=== PATIENT | female | born 1985 | race Caucasian/White ===

== ENCOUNTER 2020-10-04 23:10 | Inpatient (IN) ==
[2020-10-04 23:51] LABS: POC Blood Urea Nitrogen 6 mg/dL (6-20); POC CO2 19 mmol/L (22-30); POC Calcium, Ionized 1.03 mmEq/L (1.16-1.32); POC Chloride 96 mEq/L (96-108); POC Creatinine 0.5 mg/dL (0.6-1.2); POC Glucose, Random 158 mg/dL (70-105); POC Hematocrit 41 % (36-48); POC Potassium 2.9 mEql/L (3.3-5.1); POC Sodium 135 mEq/L (133-145)
[2020-10-05] MEDS ORDERED: POTASSIUM CHLORIDE 20 MEQ TABLET PO ONE (00:39)
[2020-10-05] MEDS ORDERED: ONDANSETRON 4 MG/2 ML VIAL IV ONE (00:39)
[2020-10-05] MEDS ORDERED: MAGNESIUM OXIDE 400 MG TABLET PO ONE (00:39)
[2020-10-05] MEDS ORDERED: LORazepam 2 MG/ML VIAL IV ONE ×2 (00:53→01:09)
--- NOTE | 2020-10-05 01:06 | Emergency Department Note ---
HPI General Chief complaint: Weakness Stated complaint: leg weakness Time Seen by Provider: 10/04/20 23:25 Source: patient Mode of arrival: wheelchair Limitations: no limitations History of Present Illness HPI Narrative: Patient is a 34-year-old lady who arrives to the emergency department by private vehicle accompanied by her complaining of generalized weakness. The patient says she has been having multiple episodes of seizure-like activity off and on for the past 3 weeks. She and her describe these episodes of her screaming out loud holding her arms up and shaking. She says that she has never had anything like this in the past but review of her medical records does reveal that she had described a history of pseudoseizures in her ER visit on September 13 and that a prior ER visit in revealed a previously diagnosed disorder of pseudoseizures. The patient is also been having nausea and vomiting for the past 2 days. She has been unable to keep anything down and has not been drinking alcohol for the past 2 days because of this. She normally does drink a large glass of vodka every day that she estimates contains about 4 or 5 shots. She has had symptoms of alcohol withdrawal in the past after cessation of alcohol intake. The patient says today after having some of these episodes she has been having difficulty walking because her legs feel too weak and she cannot feel her feet. Because of this, she decided to come in for further evaluation. Related Data Previous Rx's Medication Instructions Recorded lorazepam [Ativan] 1 mg PO TID PRN #14 tab 06/07/20 albuterol sulfate 2 puff INHALATION QID PRN #8.5 g 09/13/20 sulfamethoxazole-trimethoprim 1 tab PO Q12H #14 tab 09/13/20 [Bactrim DS] Allergies Allergy/AdvReac Type Severity Reaction Status Date / Time No Known Drug Allergies Allergy Unverified 09/09/20 15:03 Review of Systems ROS ROS Narrative: Narrative: All systems ED: reviewed and negative except as stated. Constitutional: Denies fever and chills Neurological: Denies headache PFSH Narrative Patient History Narrative: Narrative: Medical/Surgical/Family History All Active Problems (Updated 10/05/20 @ 02:42 by Hilario Linares DO) Acute alcoholic hepatitis (Acute) Acute dehydration (Acute) Palpitations (Chronic) SOB (shortness of breath) on exertion (Chronic) Dry mouth (Chronic) Difficulty hearing (Chronic) Ear ringing (Chronic) Head pain (Chronic) Vision changes (Chronic) Panic attack as reaction to stress (Chronic) Elevated liver enzymes (Chronic) Acquired thrombocytopenia (Chronic) Mixed anxiety and depressive disorder (Chronic) Cervical cancer (Chronic) Infrapatellar bursitis of right knee (Chronic) Acute alcohol intoxication (Chronic) Anxiety (Chronic) Pseudoseizure (Chronic) Alcohol use disorder, severe, dependence (Chronic) Generalized anxiety disorder (Chronic) Major depression, recurrent, chronic (Chronic) PTSD (post-traumatic stress disorder) (Chronic) Tobacco use disorder, continuous (Chronic) Seizure-like activity (Chronic) Bronchitis (Chronic) UTI (urinary tract infection) (Chronic) Medical History Acquired thrombocytopenia Acute alcohol intoxication Alcohol use disorder, severe, dependence Anxiety Bronchitis Cervical cancer Difficulty hearing Dry mouth Ear ringing Elevated liver enzymes Generalized anxiety disorder Head pain Right sideded Infrapatellar bursitis of right knee Major depression, recurrent, chronic Mixed anxiety and depressive disorder Palpitations Panic attack as reaction to stress doesnt leave home due to panic attack Pseudoseizure PTSD (post-traumatic stress disorder) Seizure-like activity SOB (shortness of breath) on exertion Tobacco use disorder, continuous UTI (urinary tract infection) Vision changes Surgical History H/O: hysterectomy History of tonsillectomy and adenoidectomy age 14 Family History Father , 45 Myocardial infarction Mother , 42 Lupus Lung cancer Social History Smoking Status: Current some day smoker Alcohol Intake Frequency: 2+ drinks per day (> 4 drinks a day ) Substance Use: does not use Exam Narrative Narrative: Gen -patient is awake and alert and appears anxious. HEENT -head is atraumatic. There is slight scleral icterus CV -S1-S2 regular rate and rhythm. Resp -breathing is nonlabored. Lungs are clear to auscultation bilaterally. There is no cyanosis. Derm -skin is warm and dry. MSK -present extremities are atraumatic. Psych -patient appears somewhat anxious. She has pressured speech. Neuro -patient answers questions appropriately and is oriented to person, place, time and situation. There is no dysarthria or aphasia. There is no facial muscular asymmetry. Extraocular motion is intact. Tongue protrudes in the midline. Palate elevates symmetrically. Shoulder shrug is symmetric. Muscle strength is 5 out of 5 in all 4 extremities. Peripheral sensation is grossly intact to light touch bilaterally. There is no [id number] abnormality. There is no [id number] abnormality. There is an intermittent intention tremor present General Limitations: no limitations Course Vital Signs Vital signs: Vital Signs Temperature 98.0 F 10/04/20 23:12 Pulse Rate 100 H 10/04/20 23:12 Respiratory Rate 20 10/04/20 23:12 Blood Pressure 131/91 10/04/20 23:12 Pulse Oximetry (%) 94 10/04/20 23:12 Temperature 98.0 F 10/04/20 23:12 Pulse Rate 104 H 10/05/20 01:01 Respiratory Rate 19 10/05/20 01:01 Blood Pressure 127/89 10/05/20 01:01 Pulse Oximetry (%) 96 10/05/20 01:01 MDM MDM Narrative Medical decision making narrative: EKG performed at 1133 p.m.: Sinus rhythm, rate 105. Normal P wave morphology. Normal QRS morphology. T waves are diffusely flattened. Normal AK QRS and QTc duration. No old EKG immediately available for comparison. EKG interpreted by me. Patient presents with generalized weakness in the setting of recent heavy alcohol intake. Labs are remarkable for elevated bilirubin and a worsening transaminitis. She also has worsening thrombocytopenia from her baseline and an elevated lipase. Patient has minimal epigastric discomfort and was actually able to tolerate some oral intake after antiemetics provided in the emergency department so clinically seems unlikely she has actual alcoholic pancreatitis. She does indeed have alcoholic hepatitis though and is significantly hypokalemic and appears quite dehydrated. She was unable to ambulate at all in the emergency department due to extreme weakness. Given this and her desire to achieve sobriety I recommended she be admitted for further hydration and repletion of electrolytes and treatment of alcohol withdrawal symptoms. She is agreeable with the plan. I discussed the patient's history examination and diagnostic findings with Dr. Burrell, who agrees with the plan of care and accepts admission. Critical care time I provided at least [31] minutes of critical care time. This was separate from any separately billable procedures. The patient was given potassium to replace her significant hypokalemia as well as empiric magnesium to treat her suspected whole-body magnesium depletion and facilitate potassium absorption to prevent cardiac dysrhythmias. She was given lorazepam to treat alcohol withdrawal symptoms and prevent progression to delirium tremens. She was given IV fluids to treat her significant dehydration. the patient was closely monitored for response to treatment and stability of vital signs throughout their emergency department stay. Lab Data Result diagrams: 10/05/20 23:47 Labs: Lab Results 10/04/20 10/05/20 10/05/20 Range/Units 23:40 01:19 23:47 WBC (4.5-11.0) K/mcL RBC (4.00-5.20) M/mcL Hgb (12.0-15.0) g/dL Hct (36.0-48.0) % POC Hct 41 (36-48) % MCV (80.0-100.0) fL MCH (26.0-34.0) pg MCHC (31.0-36.0) g/dL RDW (11.5-14.5) % Plt Count (140-440) K/mcL MPV (7.4-10.4) fL Neut % (Auto) (38.0-78.0) % Lymph % (Auto) (15.0-49.0) % [place] % (Auto) (1.0-12.0) % Eos % (Auto) (0.0-7.0) % Baso % (Auto) (0.0-2.0) % Lymph # (Auto) (1.50-4.80) K/mcL [place] # (Auto) (0.10-0.90) K/mcL Eos # (Auto) (0.00-0.70) K/mcL Baso # (Auto) (0.00-0.20) K/mcL Absolute Neutrophils (1.80-8.00) K/mcL POC PT 11.7 L (11.9-14.5) sec POC INR 1.0 (0.8-1.2) POC Sodium 135 (133-145) mEq/L POC Potassium 2.9 L* (3.3-5.1) mEql/L POC Chloride 96 (96-108) mEq/L POC Total CO2 19 L (22-30) mmol/L POC BUN 6 (6-20) mg/dL POC Creatinine 0.5 L (0.6-1.2) mg/dL POC Glucose 158 H (70-105) mg/dL POC WB Ioniz Calcium 1.03 L (1.16-1.32) mmEq/L Total Bilirubin 3.9 H (0.1-1.0) mg/dL Direct Bilirubin 2.1 H (<0.3) mg/dL AST 560 H (<32) U/L ALT 264 H (<40) U/L Alkaline Phosphatase 136 H (39-117) U/L Total Protein 6.3 (5.9-8.4) gm/dL Albumin 4.0 (3.2-5.2) gm/dL Globulin 2.3 (2.2-3.7) gm/dL Lipase (7-60) U/L Ethyl Alcohol (<0.010) gm/dL 10/05/20 10/05/20 10/05/20 Range/Units 23:47 23:47 23:47 WBC 6.6 (4.5-11.0) K/mcL RBC 4.06 (4.00-5.20) M/mcL Hgb 14.1 (12.0-15.0) g/dL Hct 39.8 (36.0-48.0) % POC Hct (36-48) % MCV 98.0 (80.0-100.0) fL MCH 34.7 H (26.0-34.0) pg MCHC 35.4 (31.0-36.0) g/dL RDW 12.9 (11.5-14.5) % Plt Count 43 L* (140-440) K/mcL MPV (7.4-10.4) fL Neut % (Auto) 71.6 (38.0-78.0) % Lymph % (Auto) 16.4 (15.0-49.0) % [place] % (Auto) 10.6 (1.0-12.0) % Eos % (Auto) 0.3 (0.0-7.0) % Baso % (Auto) 1.1 (0.0-2.0) % Lymph # (Auto) 1.08 L (1.50-4.80) K/mcL [place] # (Auto) 0.70 (0.10-0.90) K/mcL Eos # (Auto) 0.02 (0.00-0.70) K/mcL Baso # (Auto) 0.07 (0.00-0.20) K/mcL Absolute Neutrophils 4.73 (1.80-8.00) K/mcL POC PT (11.9-14.5) sec POC INR (0.8-1.2) POC Sodium (133-145) mEq/L POC Potassium (3.3-5.1) mEql/L POC Chloride (96-108) mEq/L POC Total CO2 (22-30) mmol/L POC BUN (6-20) mg/dL POC Creatinine (0.6-1.2) mg/dL POC Glucose (70-105) mg/dL POC WB Ioniz Calcium (1.16-1.32) mmEq/L Total Bilirubin (0.1-1.0) mg/dL Direct Bilirubin (<0.3) mg/dL AST (<32) U/L ALT (<40) U/L Alkaline Phosphatase (39-117) U/L Total Protein (5.9-8.4) gm/dL Albumin (3.2-5.2) gm/dL Globulin (2.2-3.7) gm/dL Lipase 828 H (7-60) U/L Ethyl Alcohol < 0.010 (<0.010) gm/dL Discharge Plan Patient/Caregiver Discharge Instructions Pt seen by 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
[2020-10-05 01:25] LABS: POC Pro Time 11.7 sec (11.9-14.5)
[2020-10-05 01:33] LABS: ALT/SGPT 264 U/L (<40); AST/SGOT 560 U/L (<32); Alkaline Phosphatase 136 U/L (39-117); Bilirubin,Direct 2.1 mg/dL (<0.3); Bilirubin,Total 3.9 mg/dL (0.1-1.0); Globulin 2.3 gm/dL (2.2-3.7)
[2020-10-05 01:34] LABS: Alcohol, Blood < 10.0 mg/dL; Alcohol,Blood < 0.010 gm/dL (<0.010)
[2020-10-05 02:18] LABS: Basophils # (Auto) 0.07 K/mcL (0.00-0.20); Basophils % (Auto) 1.1 % (0.0-2.0); Eosinophils # (Auto) 0.02 K/mcL (0.00-0.70); Eosinophils % (Auto) 0.3 % (0.0-7.0); Hematocrit 39.8 % (36.0-48.0); Hemoglobin 14.1 g/dL (12.0-15.0); Lymphocytes # (Auto) 1.08 K/mcL (1.50-4.80); Lymphocytes % (Auto) 16.4 % (15.0-49.0); Mean Corpuscular HGB Conc 35.4 g/dL (31.0-36.0); Monocytes % (Auto) 10.6 % (1.0-12.0); Neutrophils % (Auto) 71.6 % (38.0-78.0); Platelet Count 43 K/mcL (140-440); RBC 4.06 M/mcL (4.00-5.20); Red Cell Distribution Width 12.9 % (11.5-14.5); WBC 6.6 K/mcL (4.5-11.0)
[2020-10-05] MEDS ORDERED: LACTATED RINGERS 1,000 ML IV ONE ×2 (02:35)
[2020-10-05] MEDS ORDERED: 0.9 % SODIUM CHLORIDE 1,000 ML IV SCH (02:45)
[2020-10-05] MEDS ORDERED: LORazepam 2 MG/ML VIAL ONE ×3 (04:54→18:59)
[2020-10-05] MEDS: LORazepam 2 MG/ML VIAL IV PRN ×5 (04:58→19:02)
[2020-10-05] MEDS ORDERED: HYDROmorphone 1 MG/ML SYRINGE IV PRN ×3 (05:16→17:04)
[2020-10-05] MEDS ORDERED: BISACODYL 10 MG SUPP.RECT PR PRN ×2 (07:40→17:04)
[2020-10-05] MEDS ORDERED: MELATONIN 3 MG TABLET PO PRN ×2 (07:40→17:04)
[2020-10-05] MEDS ORDERED: ONDANSETRON 4 MG/2 ML VIAL IV PRN ×2 (07:40→17:04)
[2020-10-05] MEDS ORDERED: ALBUTEROL SULFATE 200 PUFF INHALER INH PRN ×2 (07:40→17:04)
[2020-10-05] MEDS ORDERED: NEUTRA PHOS 1 PACKET PO PRN ×2 (07:40→17:04)
[2020-10-05] MEDS ORDERED: MAGNESIUM SULFATE 2 GM/50 ML BAG IV PRN ×2 (07:40→17:04)
[2020-10-05] MEDS ORDERED: POTASSIUM CHLORIDE 40 MEQ in DEXTROSE 5% IN WATER 500 ML IV PRN ×2 (07:40→17:04)
[2020-10-05] MEDS ORDERED: POTASSIUM CHLORIDE 20 MEQ PACKET PO PRN ×2 (07:40→17:04)
[2020-10-05] MEDS ORDERED: ONDANSETRON 4 MG ODT TABLET SL PRN ×2 (07:40→17:04)
[2020-10-05] MEDS ORDERED: POLYETHYLENE GLYCOL 3350 17 GM PACKET PO PRN ×2 (07:40→17:04)
[2020-10-05] MEDS ORDERED: GABAPENTIN 100 MG CAPSULE PO ONE (07:46)
[2020-10-05] MEDS ORDERED: cloNIDine TTS 1 1 PATCH PATCH TD ONE (07:51)
--- NOTE | 2020-10-05 07:58 | Internal Med Progress Note ---
SUBJECTIVE Subjective Patient information: Note initiated : 10/05/20 at 7:56 am Service Date, if different from initiated Date: [] Patient: Fanny Ledesma 34 y/o F admitted on 10/05/20 for leg weakness. Chief Complaint: [] Constitutional Vitals: Vital Signs Temp Pulse Resp BP Pulse Ox 99.1 F H 118 H 15 117/86 97 10/05/20 06:57 10/05/20 06:57 10/05/20 06:57 10/05/20 06:57 10/05/20 07:05 Period Temp Pulse Resp BP Sys/Rod Pulse Ox Last 24 Hr 98.0 F-99.1 F 77-118 15-30 104-140/69-97 93-98 Intake and Output 10/04/20 10/05/20 10/05/20 21:59 05:59 13:59 Intake Total 1999 Output Total 1 Balance 1999 Weight 58.105 kg Intake & Output: Intake & Output 10/04/20 10/05/20 10/05/20 21:59 05:59 13:59 Intake Total 1999 Output Total 1 Balance 1999 Weight 58.105 kg Intake: IV 2000 Lactated Ringers 1,000 ml @ 2000 Wide Open IV BOLUS ONE Rx#: [id number] Output: Void Amount 1 Other: Urine Color Dark Ashley Urine Odor Normal # Voids 1 OBJ DATA Labs CBC & Chem 7: 10/05/20 23:47 Labs: Abnormal Lab Results 10/05/20 10/05/20 10/05/20 23:47 23:47 23:47 MCH 34.7 H Plt Count 43 L* Lymph # (Auto) 1.08 L POC PT POC Potassium POC Total CO2 POC Creatinine POC Glucose POC WB Ioniz Calcium Total Bilirubin 3.9 H Direct Bilirubin 2.1 H AST 560 H ALT 264 H Alkaline Phosphatase 136 H Lipase 828 H 10/05/20 10/04/20 01:19 23:40 MCH Plt Count Lymph # (Auto) POC PT 11.7 L POC Potassium 2.9 L* POC Total CO2 19 L POC Creatinine 0.5 L POC Glucose 158 H POC WB Ioniz Calcium 1.03 L Total Bilirubin Direct Bilirubin AST ALT Alkaline Phosphatase Lipase Meds: Medications Albuterol Sulfate (Albuterol Sulfate 200 Puff Inhaler) 2 puff INH QIDP PRN PRN Reason: shortness of breath or wheezin Bisacodyl (Bisacodyl 10 Mg Supp.Rect) 10 mg [place] Q2-3DAYS PRN PRN Reason: Constipation Budesonide (Budesonide 0.5 Mg/2 Ml Ampul.Neb) 0.5 mg NEB Q12 [facility] Clonidine HCl (Clonidine Hcl 0.1 Mg Tablet) 0.1 mg PO Q8 [facility] Cyanocobalamin (Cyanocobalamin (Vitamin B-12) 500 Mcg Tablet) 1,000 mcg PO BID [facility] Stop: 10/09/20 21:01 Docusate Sodium (Docusate Sodium 100 Mg Capsule) 100 mg PO BID [facility] Folic Acid (Folic Acid 1 Mg Tablet) 1 mg PO DAILY [facility] Gabapentin (Gabapentin 300 Mg Capsule) 600 mg PO Q8 [facility] Heparin Sodium (Porcine) (Heparin 5,000 Unit/Ml Vial) 5,000 unit SQ Q12 [facility] Hydromorphone HCl (Hydromorphone 1 Mg/Ml Syringe) 0.25 mg IV Q2HP PRN; Protocol PRN Reason: Per Pain Protocol Potassium Chloride 40 meq/ (Dextrose) 520 mls @ 130 mls/hr IV UD PRN PRN Reason: K+ = or < 3.5 Magnesium Sulfate (Magnesium Sulfate) 2 gm in 50 mls @ 50 mls/hr IV UD PRN PRN Reason: MG = or < 1.7 Sodium Chloride (Sodium Chloride 0.9%) 1,000 mls @ 250 mls/hr IV .Q4H GENE Thiamine HCl 100 mg/ Sodium (Chloride) 51 mls @ 50 mls/hr IV DAILY [facility] Stop: 10/07/20 10:02 Iron Carb/Multivit/[place]/Folic Acid (Multivit,Ther Iron,Ca,Fa & Min 1 Tablet) 1 tab PO DAILY [facility] Lorazepam (Lorazepam 2 Mg/Ml Vial) 0 mg IV Q4-6HP PRN; Protocol PRN Reason: CIWA-A >6 or HR >100 Melatonin (Melatonin 3 Mg Tablet) 3 mg PO HSP PRN PRN Reason: Insomnia Ondansetron HCl (Ondansetron 4 Mg Odt Tablet) 4 mg SL Q4-6HP PRN; Protocol PRN Reason: Nausea And Vomiting Ondansetron HCl (Ondansetron 4 Mg/2 Ml Vial) 4 mg IV Q4-6HP PRN; Protocol PRN Reason: Nausea And Vomiting Pantoprazole Sodium (Pantoprazole 40 Mg Tablet) 40 mg PO QAMAC GENE Polyethylene Glycol (Polyethylene Glycol 3350 17 Gm Packet) 17 gm PO DAILYP PRN PRN Reason: Constipation Potassium Chloride (Potassium Chloride 20 Meq Packet) 40 meq PO DAILYP PRN PRN Reason: K+ < 3.5 Potassium/Phosphorus/Sodium (Neutra Phos 1 Packet) 2 packet PO DAILYP PRN PRN Reason: PHOS <2.5 Prednisone (Prednisolone 15 Mg/5 Ml Oral Felicitas) 40 mg PO DAILY GENE Senna/Docusate Sodium (Sennosides/Docusate Sodium 1 Tab Tablet) 1 tab PO HS GENE Sodium Chloride (0.9 % Sodium Chloride 10 Ml Syringe) 10 ml IV Q8 GENE A/P Narrative A/P Narrative: * Alcoholic hepatitis * Acute ETOH withdrawl * Hypokalemia * Acute pancreatitis * Thrombocytopenia * PEM * Time Spent With Patient Time: Total time spent is greater than 50% in coordination of care (as documented) at patient's floor/unit and/or counseling patient: QUALITY Stroke Symptom Onset Unknown: No VTE Deep Vein Thrombosis/Pulmonary Embolism Present on Admission: No
[2020-10-05] MEDS ORDERED: prednisoLONE 15 MG/5 ML ORAL SOL PO SCH (09:00)
[2020-10-05] MEDS ORDERED: CYANOCOBALAMIN (VITAMIN B-12) 500 MCG TABLET PO SCH (09:00)
[2020-10-05] MEDS ORDERED: DOCUSATE SODIUM 100 MG CAPSULE PO SCH (09:00)
[2020-10-05] MEDS ORDERED: MULTIVIT,THER IRON,CA,FA & MIN 1 TABLET PO SCH (09:00)
[2020-10-05] MEDS ORDERED: THIAMINE 100 MG in 0.9 % SODIUM CHLORIDE 50 ML IV SCH (09:00)
[2020-10-05] MEDS ORDERED: HEPARIN 5,000 UNIT/ML VIAL SQ SCH (09:00)
[2020-10-05] MEDS ORDERED: BUDESONIDE 0.5 MG/2 ML AMPUL.NEB NEB SCH (09:00)
[2020-10-05] MEDS ORDERED: FOLIC ACID 1 MG TABLET PO SCH (09:00)
[2020-10-05 09:13] LABS: Prothrombin Time 14.1 sec (11.9-14.5)
[2020-10-05] MEDS: 0.9 % SODIUM CHLORIDE 1,000 ML IV SCH ×5 (09:30→21:39)
--- NOTE | 2020-10-05 09:59 | Internal Med History&Physical ---
HPI History of Present Illness Patient information: Note initiated : 10/05/20 at 9:50 am Service Date, if different from initiated Date: [] Patient: Fanny Ledesma 34 y/o F admitted on 10/05/20 for leg weakness. Chief Complaint: [] History of present illness: Ms. Ledesma is a 34 year old F history of alcoholism/reactive airway diseas Who presents to the ER with increasing weakness. Patient has been drinking regularly in excess of 8 to 10 ounces of vodka. She endorses to starting drinking at age 14. She has 3 kids and lives with her . She denies suicidal ideation but has been trying to quit alcohol. She is on multiple recent hospitalization for alcohol intoxication. She denies bloody emesis, bloody stool, abdominal pain distention or yellow discoloration of skin, she does endorse to loss of appetite. Initial work-up in the ER was consistent with acute alcoholic hepatitis with elevated LFTs AST/ALT ratio reduced to 1, platelet 43, elevated lipase, early alcohol withdrawal symptoms with tachycardia tachypnea and psychomotor agitation. Patient was started on benzodiazepine/crystalloids. Notably patient has history of withdrawal symptoms mimicking seizures in the past. Hospitalist service was consulted At the time of evaluation patient is anxious. She is able to answer most of the questions. She is slightly anxious and fidgety but denies diaphoresis/diarrhea/fever, chills. Review of systems 10 point review system was performed and is negative except for ones discussed above PFSH PFSH All Active Problems (Updated 10/05/20 @ 02:42 by Hilario Linares DO) Acute alcoholic hepatitis (Acute) Acute dehydration (Acute) Palpitations (Chronic) SOB (shortness of breath) on exertion (Chronic) Dry mouth (Chronic) Difficulty hearing (Chronic) Ear ringing (Chronic) Head pain (Chronic) Vision changes (Chronic) Panic attack as reaction to stress (Chronic) Elevated liver enzymes (Chronic) Acquired thrombocytopenia (Chronic) Mixed anxiety and depressive disorder (Chronic) Cervical cancer (Chronic) Infrapatellar bursitis of right knee (Chronic) Acute alcohol intoxication (Chronic) Anxiety (Chronic) Pseudoseizure (Chronic) Alcohol use disorder, severe, dependence (Chronic) Generalized anxiety disorder (Chronic) Major depression, recurrent, chronic (Chronic) PTSD (post-traumatic stress disorder) (Chronic) Tobacco use disorder, continuous (Chronic) Seizure-like activity (Chronic) Bronchitis (Chronic) UTI (urinary tract infection) (Chronic) Medical History Acquired thrombocytopenia Acute alcohol intoxication Alcohol use disorder, severe, dependence Anxiety Bronchitis Cervical cancer Difficulty hearing Dry mouth Ear ringing Elevated liver enzymes Generalized anxiety disorder Head pain Right sideded Infrapatellar bursitis of right knee Major depression, recurrent, chronic Mixed anxiety and depressive disorder Palpitations Panic attack as reaction to stress doesnt leave home due to panic attack Pseudoseizure PTSD (post-traumatic stress disorder) Seizure-like activity SOB (shortness of breath) on exertion Tobacco use disorder, continuous UTI (urinary tract infection) Vision changes Surgical History H/O: hysterectomy History of tonsillectomy and adenoidectomy age 14 Family History Father , 45 Myocardial infarction Mother , 42 Lupus Lung cancer Social History (Updated 09/09/20 @ 15:17 by Edie Olson LPN) alcohol intake frequency: 2+ drinks per day (> 4 drinks a day ) substance use type: does not use MEDS/ALLERGIES Home Medications and Allergies Home Medications Medication Instructions Recorded Confirmed Type lorazepam [Ativan] 1 mg PO TID PRN #14 tab 06/07/20 10/05/20 Rx albuterol sulfate 2 puff INHALATION QID PRN #8.5 g 09/13/20 10/05/20 Rx sulfamethoxazole-trimethoprim 1 tab PO Q12H #14 tab 09/13/20 10/05/20 Rx [Bactrim DS] Allergies Allergy/AdvReac Type Severity Reaction Status Date / Time No Known Drug Allergies Allergy Verified 10/05/20 03:53 EXAM Constitutional Vitals: Temp Pulse Resp BP Pulse Ox 99.1 F H 118 H 15 117/86 97 10/05/20 06:57 10/05/20 06:57 10/05/20 06:57 10/05/20 06:57 10/05/20 07:05 Alert, anxious and fidgety Head normocephalic Oral cavity moist No ear nose discharge Eye movement symmetrical, no nystagmus Neck supple no lymphadenopathy S1-S2 tachycardia Nonlabored rapid shallow breathing Nondistended nontender abdomen Lower extremity no cyanosis clubbing or joint swelling Skin no suspicious lesion Psych no hallucination Neuro normal higher function, GCS 14 DATA Data Completed and Pending Labs: Labs from last 24 hours 10/05/20 10/05/20 10/05/20 23:47 23:47 23:47 WBC 6.6 RBC 4.06 Hgb 14.1 Hct 39.8 POC Hct MCV 98.0 MCH 34.7 H MCHC 35.4 RDW 12.9 Plt Count 43 L* MPV Neut % (Auto) 71.6 Lymph % (Auto) 16.4 [place] % (Auto) 10.6 Eos % (Auto) 0.3 Baso % (Auto) 1.1 Lymph # (Auto) 1.08 L [place] # (Auto) 0.70 Eos # (Auto) 0.02 Baso # (Auto) 0.07 Absolute Neutrophils 4.73 POC PT PT POC INR INR POC Sodium POC Potassium POC Chloride POC Total CO2 POC BUN POC Creatinine POC Glucose POC WB Ioniz Calcium Total Bilirubin Direct Bilirubin AST ALT Alkaline Phosphatase Total Protein Albumin Globulin Lipase 828 H Ethyl Alcohol < 0.010 10/05/20 10/05/20 10/05/20 23:47 08:08 01:19 WBC RBC Hgb Hct POC Hct MCV MCH MCHC RDW Plt Count MPV Neut % (Auto) Lymph % (Auto) [place] % (Auto) Eos % (Auto) Baso % (Auto) Lymph # (Auto) [place] # (Auto) Eos # (Auto) Baso # (Auto) Absolute Neutrophils POC PT 11.7 L PT 14.1 POC INR 1.0 INR 1.0 POC Sodium POC Potassium POC Chloride POC Total CO2 POC BUN POC Creatinine POC Glucose POC WB Ioniz Calcium Total Bilirubin 3.9 H Direct Bilirubin 2.1 H AST 560 H ALT 264 H Alkaline Phosphatase 136 H Total Protein 6.3 Albumin 4.0 Globulin 2.3 Lipase Ethyl Alcohol 10/04/20 23:40 WBC RBC Hgb Hct POC Hct 41 MCV MCH MCHC RDW Plt Count MPV Neut % (Auto) Lymph % (Auto) [place] % (Auto) Eos % (Auto) Baso % (Auto) Lymph # (Auto) [place] # (Auto) Eos # (Auto) Baso # (Auto) Absolute Neutrophils POC PT PT POC INR INR POC Sodium 135 POC Potassium 2.9 L* POC Chloride 96 POC Total CO2 19 L POC BUN 6 POC Creatinine 0.5 L POC Glucose 158 H POC WB Ioniz Calcium 1.03 L Total Bilirubin Direct Bilirubin AST ALT Alkaline Phosphatase Total Protein Albumin Globulin Lipase Ethyl Alcohol A/P Narrative A/P Narrative: * Acute alcohol hepatitis. Discriminant function under 30. Continue supportive treatment. CT abdomen rule out obstructive biliary process * Acute alcoholic pancreatitis-high Kleberg score. Continue aggressive crystalloid/pain management. Continue bowel rest, start clears * Alcohol withdrawal-aggressive management per protocol including clonidine/gabapentin and as needed benzodiazepine. Multivitamins * Thrombocytopenia secondary to alcoholic liver disease * Hypokalemia on replacement * Reactive airway disease continue bronchodilators * Full code prophylaxis Heparin Plan * Inpatient admission * Close hemodynamic telemetry monitoring for alcohol withdrawal and impending seizure watch * Antiseizure medication/crystalloid/supportive management * Oral clears * Prednisolone for alcohol hepatitis Time Spent With Patient Time: Total time spent is greater than 50% in coordination of care (as documented) at patient's floor/unit and/or counseling patient: QUALITY Stroke Symptom Onset Unknown: No VTE Deep Vein Thrombosis/Pulmonary Embolism Present on Admission: No
[2020-10-05] MEDS ORDERED: IOPAMIDOL 100 ML BOTTLE IV ONE ×2 (12:15→17:04)
--- NOTE | 2020-10-05 12:38 | Cat Scan Report ---
CLINICAL INFORMATION: Abdominal pain - hepatic inflammation6 COMPARISON: None. TECHNIQUE: Following enteric contrast, 80 cc of Isovue-370 were injected intravenously, and 60 seconds later, 0.625 mm helical slices were obtained from the mid heart through the subtrochanteric regions. Following reconstruction, 2.5 mm sagittal, coronal and axial reformatted images were processed and reviewed at bone, lung and soft tissue windows. Five minutes later, 0.625 mm helical slices were obtained from the mid heart through the kidneys and viewed at soft tissue windows.The exam was performed using radiation dose optimization techniques including, but not limited to, automated exposure control, adjustment of the mA and/or kV according to patient size and use of iterative reconstruction technique. FINDINGS: The lung bases show no abnormality - no effusion. The visualized heart is normal. Abdominal images show markedly enlarged liver with a vertical dimension of 23 cm at mid clavicular line. There is also marked diffuse fatty change, but no focal hepatic lesion. Gallbladder is mildly distended but grossly normal. Intrahepatic and common bile ducts are normal caliber: CBD is 5 mm. Both kidneys, adrenal glands, spleen, pancreas and aorta, including aortic branches, are normal in size variation attenuation without focal lesion. There is no free air, free fluid or adenopathy. Pelvic images show anteflexed uterus which is normal in size: 7 x 4 cm. both ovaries are normal. Urinary bladder is unremarkable. Few sigmoid diverticuli appreciated no evidence of diverticulitis. There is mild mucosal enhancement of the right colon and cecum which could indicate colitis. The small bowel stomach are grossly normal. Bone windows show no osseous abnormality IMPRESSION: 1. Moderate hepatomegaly megaly with severe diffuse fatty change compatible with the clinical diagnosis of alcoholic hepatitis. No focal lesions. No evidence of cirrhosis 2. Mild mucosal enhancement of the right colon suggestive of colitis. Interpreted and Authenticated by: Familia Barroso 10/05/20
[2020-10-05] MEDS ORDERED: 0.9 % SODIUM CHLORIDE 10 ML SYRINGE IV SCH (14:00)
[2020-10-05] MEDS ORDERED: GABAPENTIN 300 MG CAPSULE PO SCH (14:00)
[2020-10-05] MEDS ORDERED: cloNIDine HCL 0.1 MG TABLET PO SCH (14:00)
[2020-10-05] MEDS ORDERED: LORazepam 2 MG/ML VIAL IV PRN (17:04)
[2020-10-05] MEDS: BUDESONIDE 0.5 MG/2 ML AMPUL.NEB NEB SCH (19:59)
[2020-10-05] MEDS ORDERED: SENNOSIDES/DOCUSATE SODIUM 1 TAB TABLET PO SCH ×2 (21:00)
[2020-10-05] MEDS: GABAPENTIN 300 MG CAPSULE PO SCH (21:34)
[2020-10-05] MEDS: HEPARIN 5,000 UNIT/ML VIAL SQ SCH (21:34)
[2020-10-05] MEDS: cloNIDine HCL 0.1 MG TABLET PO SCH (21:34)
[2020-10-05] MEDS: CYANOCOBALAMIN (VITAMIN B-12) 500 MCG TABLET PO SCH (21:34)
[2020-10-05] MEDS: 0.9 % SODIUM CHLORIDE 10 ML SYRINGE IV SCH (21:35)
[2020-10-05] MEDS: DOCUSATE SODIUM 100 MG CAPSULE PO SCH (21:35)
[2020-10-06] MEDS: 0.9 % SODIUM CHLORIDE 1,000 ML IV SCH ×7 (02:39→21:53)
[2020-10-06] MEDS: LORazepam 2 MG/ML VIAL IV PRN ×5 (04:10→20:36)
[2020-10-06] MEDS: cloNIDine HCL 0.1 MG TABLET PO SCH ×3 (06:32→20:35)
[2020-10-06] MEDS: GABAPENTIN 300 MG CAPSULE PO SCH ×3 (06:33→20:36)
[2020-10-06] MEDS: 0.9 % SODIUM CHLORIDE 10 ML SYRINGE IV SCH ×3 (06:40→21:48)
[2020-10-06] MEDS ORDERED: PANTOPRAZOLE 40 MG TABLET PO SCH ×2 (07:30)
[2020-10-06] MEDS: DOCUSATE SODIUM 100 MG CAPSULE PO SCH ×2 (08:13→20:35)
[2020-10-06 08:14] LABS: ALT/SGPT 148 U/L (<40); AST/SGOT 250 U/L (<32); Albumin 2.6 gm/dL (3.2-5.2); Albumin/Globulin Ratio 1.9 (1.0-2.3); Alkaline Phosphatase 80 U/L (39-117); Basophils # (Auto) 0.03 K/mcL (0.00-0.20); Basophils % (Auto) 0.6 % (0.0-2.0); Bilirubin,Total 2.7 mg/dL (0.1-1.0); Blood Urea Nitrogen 4 mg/dL (6-20); Calcium 7.1 mg/dL (8.6-10.4); Carbon Dioxide 22 mmol/L (22-30); Chloride 104 mmol/L (96-108); Eosinophils # (Auto) 0.11 K/mcL (0.00-0.70); Eosinophils % (Auto) 2.3 % (0.0-7.0); Globulin 1.4 gm/dL (2.2-3.7); Glomerular Filtration Rate 147; Glucose 89 mg/dL (70-105); Hematocrit 28.3 % (36.0-48.0); Hemoglobin 9.5 g/dL (12.0-15.0); Lactate Dehydrogenase 293 U/L (135-225); Lymphocytes # (Auto) 1.05 K/mcL (1.50-4.80); Lymphocytes % (Auto) 22.3 % (15.0-49.0); Mean Cell Volume 103.3 fL (80.0-100.0); Mean Corpuscular HGB Conc 33.6 g/dL (31.0-36.0); Mean Platelet Volume 13.8 fL (7.4-10.4); Monocytes % (Auto) 8.5 % (1.0-12.0); Neutrophils % (Auto) 66.3 % (38.0-78.0); Phosphorous 1.9 mg/dL (2.5-4.5); Platelet Count 46 K/mcL (140-440); RBC 2.74 M/mcL (4.00-5.20); Red Cell Distribution Width 13.4 % (11.5-14.5); Triglycerides 75 mg/dL (<150); Uric Acid 4.9 mg/dL (2.5-8.0); WBC 4.7 K/mcL (4.5-11.0)
[2020-10-06] MEDS: CYANOCOBALAMIN (VITAMIN B-12) 500 MCG TABLET PO SCH ×2 (08:18→20:35)
[2020-10-06] MEDS: HEPARIN 5,000 UNIT/ML VIAL SQ SCH (08:24)
[2020-10-06] MEDS ORDERED: POTASSIUM CHLORIDE 40 MEQ in DEXTROSE 5% IN WATER 500 ML IV PRN ×2 (08:39→17:32)
[2020-10-06] MEDS ORDERED: NEUTRA PHOS 1 PACKET PO PRN (08:50)
[2020-10-06] MEDS ORDERED: MAGNESIUM SULFATE 2 GM/50 ML BAG IV PRN (08:50)
[2020-10-06] MEDS ORDERED: prednisoLONE 15 MG/5 ML ORAL SOL PO SCH (09:00)
[2020-10-06] MEDS ORDERED: THIAMINE 100 MG in 0.9 % SODIUM CHLORIDE 50 ML IV SCH (09:00)
[2020-10-06] MEDS ORDERED: MULTIVIT,THER IRON,CA,FA & MIN 1 TABLET PO SCH (09:00)
[2020-10-06] MEDS ORDERED: FOLIC ACID 1 MG TABLET PO SCH (09:00)
[2020-10-06] MEDS: BUDESONIDE 0.5 MG/2 ML AMPUL.NEB NEB SCH ×2 (09:27→20:14)
--- NOTE | 2020-10-06 13:03 | Internal Med Progress Note ---
SUBJECTIVE Subjective Patient information: Note initiated : 10/06/20 at 12:57 pm Service Date, if different from initiated Date: [] Patient: Fanny Ledesma a 34 y/o F admitted on 10/05/20 for leg weakness. Chief Complaint: [] Interval history: Ms. Ledesma is a 34 year old F history of alcoholism/reactive airway diseas Who presents to the ER with increasing weakness. Patient has been drinking regularly in excess of 8 to 10 ounces of vodka. She endorses to starting drinking at age 14. She has 3 kids and lives with her . She denies suicidal ideation but has been trying to quit alcohol. She is on multiple recent hospitalization for alcohol intoxication. She denies bloody emesis, bloody stool, abdominal pain distention or yellow discoloration of skin, she does endorse to loss of appetite. Initial work-up in the ER was consistent with acute alcoholic hepatitis with elevated LFTs AST/ALT ratio reduced to 1, platelet 43, elevated lipase, early alcohol withdrawal symptoms with tachycardia tachypnea and psychomotor agitation. Patient was started on benzodiazepine/crystalloids. Notably patient has history of withdrawal symptoms mimicking seizures in the past. Hospitalist service was consulted At the time of evaluation patient is anxious. She is able to answer most of the questions. She is slightly anxious and fidgety but denies diaphoresis/diarrhea/fever, chills. Later in the day patient clinically deteriorating. Case discussed with patient's nursing staff. Remains tachycardic at 120s with CIWA score around 20. Tremulous and diaphoretic. Transition to PCU for continued EtOH withdrawal care/monitoring for DTs and seizure prophylaxis. 10/06-patient doing well on aggressive alcohol withdrawal protocol. LFTs downtrending. Transitioning to oral diet. Improved psychomotor agitation/tachycardia/diaphoresis. Electrolyte abnormalities currently being replaced with IV and oral magnesium/potassium/phosphorus. Aggressive counseling for alcohol cessation performed. Patient volunteering to undergo outpatient rehab however affirms that is difficult at home with her also being an alcoholic. Case management consulted to provide resources available in the community. No overnight events except for persistent psychomotor agitation requiring aggressive alcohol withdrawal monitoring and treatment Constitutional Vitals: Vital Signs Temp Pulse Resp BP Pulse Ox 98.7 F 76 16 110/73 95 10/06/20 12:00 10/06/20 12:00 10/06/20 12:00 10/06/20 12:00 10/06/20 12:00 Period Temp Pulse Resp BP Sys/Rod Pulse Ox Last 24 Hr 97.9 F-98.7 F 67-125 15-20 94-126/69-80 94-98 Intake and Output 10/05/20 10/06/20 10/06/20 21:59 05:59 13:59 Intake Total 2671 1800 1901 Output Total 126 1050 2050 Balance 2545 750 -149 Weight 61.734 kg Anxious and fidgety Alert and respond to commands Nonlabored breathing Tremulous Intake & Output: Intake & Output 10/05/20 10/06/20 10/06/20 21:59 05:59 13:59 Intake Total 2671 1800 1901 Output Total 126 1050 2050 Balance 2545 750 -149 Weight 61.734 kg Intake: IV 2471 1000 1101 Sodium Chloride 0.9% 1,000 ml @ 2471 1000 1000 250 mls/hr IV .Q4H [facility] Rx#: [id number] Vitamin B1 100 mg In Sodium 51 Chloride 0.9% 50 ml @ 50 mls/hr IV DAILY [facility] Rx#:[id number] Oral 200 800 800 Output: Void Amount 125 1050 2050 Urine/Stool Mix 1 Other: Meal jello, chicken broth Percent of Meal Consumed 100% Urine Appearance Clear Clear Urine Color Dark Ashley Light Ashley Dark Yellow [place] Urine Odor Strong Normal Stool Size Large OBJ DATA Labs CBC & Chem 7: 10/06/20 05:53 10/06/20 05:53 Labs: Abnormal Lab Results 10/06/20 10/06/20 10/05/20 05:53 05:53 23:47 RBC 2.74 L Hgb 9.5 L Hct 28.3 L MCV 103.3 H MCH 34.7 H Plt Count 46 L* MPV 13.8 H Lymph # (Auto) 1.05 L POC PT POC Potassium Potassium 3.0 L POC Total CO2 Anion Gap 7.0 L BUN 4 L Creatinine 0.3 L POC Creatinine POC Glucose Calcium 7.1 L POC WB Ioniz Calcium Phosphorus 1.9 L Magnesium 0.9 L* Total Bilirubin 2.7 H Direct Bilirubin 2.0 H GGT 945 H AST 250 H ALT 148 H Alkaline Phosphatase Lactate Dehydrogenase 293 H Total Protein 4.0 L Albumin 2.6 L Globulin 1.4 L Lipase 828 H 10/05/20 10/05/20 10/05/20 23:47 23:47 01:19 RBC Hgb Hct MCV MCH 34.7 H Plt Count 43 L* MPV Lymph # (Auto) 1.08 L POC PT 11.7 L POC Potassium Potassium POC Total CO2 Anion Gap BUN Creatinine POC Creatinine POC Glucose Calcium POC WB Ioniz Calcium Phosphorus Magnesium Total Bilirubin 3.9 H Direct Bilirubin 2.1 H GGT AST 560 H ALT 264 H Alkaline Phosphatase 136 H Lactate Dehydrogenase Total Protein Albumin Globulin Lipase 10/04/20 23:40 RBC Hgb Hct MCV MCH Plt Count MPV Lymph # (Auto) POC PT POC Potassium 2.9 L* Potassium POC Total CO2 19 L Anion Gap BUN Creatinine POC Creatinine 0.5 L POC Glucose 158 H Calcium POC WB Ioniz Calcium 1.03 L Phosphorus Magnesium Total Bilirubin Direct Bilirubin GGT AST ALT Alkaline Phosphatase Lactate Dehydrogenase Total Protein Albumin Globulin Lipase Meds: Medications Albuterol Sulfate (Albuterol Sulfate 200 Puff Inhaler) 2 puff INH QIDP PRN PRN Reason: shortness of breath or wheezin Bisacodyl (Bisacodyl 10 Mg Supp.Rect) [address] Q2-3DAYS PRN PRN Reason: Constipation Budesonide (Budesonide 0.5 Mg/2 Ml Ampul.Neb) 0.5 mg NEB Q12 [facility] Last Admin: 10/06/20 09:27 Dose: 0.5 mg Documented by: Clonidine HCl (Clonidine Hcl 0.1 Mg Tablet) 0.1 mg PO Q8 [facility] Last Admin: 10/06/20 06:32 Dose: 0.1 mg Documented by: Cyanocobalamin (Cyanocobalamin (Vitamin B-12) 500 Mcg Tablet) 1,000 mcg PO BID [facility] Stop: 10/09/20 21:01 Last Admin: 10/06/20 08:18 Dose: 1,000 mcg Documented by: Docusate Sodium (Docusate Sodium 100 Mg Capsule) 100 mg PO BID [facility] Last Admin: 10/06/20 08:13 Dose: Not Given Documented by: Folic Acid (Folic Acid 1 Mg Tablet) 1 mg PO DAILY [facility] Last Admin: 10/06/20 08:18 Dose: 1 mg Documented by: Gabapentin (Gabapentin 300 Mg Capsule) 600 mg PO Q8 [facility] Last Admin: 10/06/20 06:33 Dose: 600 mg Documented by: Heparin Sodium (Porcine) (Heparin 5,000 Unit/Ml Vial) 5,000 unit SQ Q12 [facility] Last Admin: 10/06/20 08:24 Dose: 5,000 unit Documented by: Hydromorphone HCl (Hydromorphone 1 Mg/Ml Syringe) 0.25 mg IV Q2HP PRN; Protocol PRN Reason: Per Pain Protocol Sodium Chloride (Sodium Chloride 0.9%) 1,000 mls @ 250 mls/hr IV .Q4H [facility] Last Admin: 10/06/20 07:05 Dose: 250 mls/hr Documented by: Magnesium Sulfate (Magnesium Sulfate) 2 gm in 50 mls @ 50 mls/hr IV UD PRN PRN Reason: MG = or < 1.7 Last Infusion: 10/06/20 12:15 Dose: Infused Documented by: Thiamine HCl 100 mg/ Sodium (Chloride) 51 mls @ 50 mls/hr IV DAILY [facility] Stop: 10/07/20 10:02 Last Infusion: 10/06/20 11:10 Dose: Infused Documented by: Potassium Chloride 40 meq/ (Dextrose) 520 mls @ 130 mls/hr IV UD PRN PRN Reason: K+ = or < 3.5 Iron Carb/Multivit/[place]/Folic Acid (Multivit,Ther Iron,Ca,Fa & Min 1 Tablet) 1 tab PO DAILY [facility] Last Admin: 10/06/20 08:19 Dose: 1 tab Documented by: Lorazepam (Lorazepam 2 Mg/Ml Vial) 1 - 2 mg IV Q2HP PRN PRN Reason: ANXIETY/SEDATION Last Admin: 10/06/20 10:04 Dose: 2 mg Documented by: Melatonin (Melatonin 3 Mg Tablet) 3 mg PO HSP PRN PRN Reason: Insomnia Ondansetron HCl (Ondansetron 4 Mg Odt Tablet) 4 mg SL Q4-6HP PRN; Protocol PRN Reason: Nausea And Vomiting Ondansetron HCl (Ondansetron 4 Mg/2 Ml Vial) 4 mg IV Q4-6HP PRN; Protocol PRN Reason: Nausea And Vomiting Pantoprazole Sodium (Pantoprazole 40 Mg Tablet) 40 mg PO QAMAC [facility] Last Admin: 10/06/20 07:13 Dose: 40 mg Documented by: Polyethylene Glycol (Polyethylene Glycol 3350 17 Gm Packet) 17 gm PO DAILYP PRN PRN Reason: Constipation Potassium Chloride (Potassium Chloride 20 Meq Packet) 40 meq PO DAILYP PRN PRN Reason: K+ < 3.5 Last Admin: 10/06/20 10:13 Dose: 40 meq Documented by: Potassium/Phosphorus/Sodium (Neutra Phos 1 Packet) 2 packet PO DAILYP PRN PRN Reason: PHOS <2.5 Last Admin: 10/06/20 10:14 Dose: 2 packet Documented by: Prednisone (Prednisolone 15 Mg/5 Ml Oral Felicitas) 40 mg PO DAILY [facility] Last Admin: 10/06/20 08:22 Dose: 40 mg Documented by: Senna/Docusate Sodium (Sennosides/Docusate Sodium 1 Tab Tablet) 1 tab PO HS [facility] Last Admin: 10/05/20 21:35 Dose: Not Given Documented by: Sodium Chloride (0.9 % Sodium Chloride 10 Ml Syringe) 10 ml IV Q8 [facility] Last Admin: 10/06/20 06:40 Dose: Not Given Documented by: A/P Narrative A/P Narrative: * Acute alcohol hepatitis. Clinically improving with downtrending LFTs/improving synthetic function. DC steroid. Aggressive alcohol cessation counseling * Acute alcoholic pancreatitis-gradual clinical improvement noted. Transition to low-fat diet * evere alcohol use disorder with DTs -continue seizure watch/close hemodynamic monitoring along with clonidine/gabapentin and as needed benzodiazepine, multivitamins * Thrombocytopenia secondary to alcoholic liver disease. * Hypokalemia/low magnesium continue replacement * Reactive airway disease continue bronchodilators * Full code prophylaxis Heparin Plan * Continue close hemodynamic/DT monitoring in ICU * Antiseizure medication/crystalloid/supportive management * Low-fat diet * Fondaparinux * DC prednisolone Time Spent With Patient Time: Total time spent is greater than 50% in coordination of care (as documented) at patient's floor/unit and/or counseling patient: QUALITY Stroke Symptom Onset Unknown: No VTE Deep Vein Thrombosis/Pulmonary Embolism Present on Admission: No
[2020-10-06] MEDS ORDERED: MELATONIN 3 MG TABLET PO PRN (17:32)
[2020-10-06] MEDS ORDERED: ALBUTEROL SULFATE 200 PUFF INHALER INH PRN (17:32)
[2020-10-06] MEDS ORDERED: HYDROmorphone 1 MG/ML SYRINGE IV PRN (17:32)
[2020-10-06] MEDS ORDERED: ONDANSETRON 4 MG ODT TABLET SL PRN (17:32)
[2020-10-06] MEDS ORDERED: BISACODYL 10 MG SUPP.RECT PR PRN (17:32)
[2020-10-06] MEDS ORDERED: IOPAMIDOL 100 ML BOTTLE IV ONE (17:32)
[2020-10-06] MEDS ORDERED: POLYETHYLENE GLYCOL 3350 17 GM PACKET PO PRN (17:32)
[2020-10-06] MEDS: SENNOSIDES/DOCUSATE SODIUM 1 TAB TABLET PO SCH (20:35)
[2020-10-07] MEDS: 0.9 % SODIUM CHLORIDE 1,000 ML IV SCH ×6 (02:13→19:34)
[2020-10-07] MEDS: ONDANSETRON 4 MG/2 ML VIAL IV PRN ×3 (04:10→18:31)
[2020-10-07] MEDS: 0.9 % SODIUM CHLORIDE 10 ML SYRINGE IV SCH ×3 (05:34→20:02)
[2020-10-07] MEDS: GABAPENTIN 300 MG CAPSULE PO SCH ×3 (05:40→21:34)
[2020-10-07] MEDS: cloNIDine HCL 0.1 MG TABLET PO SCH ×2 (05:40→10:02)
[2020-10-07] MEDS: LORazepam 2 MG/ML VIAL IV PRN ×5 (05:50→21:34)
[2020-10-07 06:51] LABS: Basophils # (Auto) 0.03 K/mcL (0.00-0.20); Basophils % (Auto) 0.6 % (0.0-2.0); Eosinophils # (Auto) 0.12 K/mcL (0.00-0.70); Eosinophils % (Auto) 2.4 % (0.0-7.0); Hematocrit 31.5 % (36.0-48.0); Hemoglobin 10.5 g/dL (12.0-15.0); Lymphocytes # (Auto) 0.94 K/mcL (1.50-4.80); Lymphocytes % (Auto) 18.8 % (15.0-49.0); Mean Cell Volume 104.7 fL (80.0-100.0); Mean Corpuscular HGB Conc 33.3 g/dL (31.0-36.0); Mean Platelet Volume 13.1 fL (7.4-10.4); Monocytes # (Auto) 0.41 K/mcL (0.10-0.90); Monocytes % (Auto) 8.2 % (1.0-12.0); Platelet Count 70 K/mcL (140-440); RBC 3.01 M/mcL (4.00-5.20); Red Cell Distribution Width 13.5 % (11.5-14.5)
[2020-10-07 07:13] LABS: ALT/SGPT 146 U/L (<40); AST/SGOT 198 U/L (<32); Albumin 2.9 gm/dL (3.2-5.2); Albumin/Globulin Ratio 1.5 (1.0-2.3); Alkaline Phosphatase 91 U/L (39-117); Bilirubin,Direct 1.7 mg/dL (<0.3); Bilirubin,Total 2.3 mg/dL (0.1-1.0); Blood Urea Nitrogen 3 mg/dL (6-20); Calcium 7.3 mg/dL (8.6-10.4); Carbon Dioxide 22 mmol/L (22-30); Chloride 112 mmol/L (96-108); Globulin 1.9 gm/dL (2.2-3.7); Glomerular Filtration Rate 147; Glucose 96 mg/dL (70-105); Lactate Dehydrogenase 305 U/L (135-225); Phosphorous 2.2 mg/dL (2.5-4.5); Triglycerides 110 mg/dL (<150); Uric Acid 4.1 mg/dL (2.5-8.0)
[2020-10-07] MEDS: PANTOPRAZOLE 40 MG TABLET PO SCH (08:04)
[2020-10-07] MEDS: BUDESONIDE 0.5 MG/2 ML AMPUL.NEB NEB SCH (08:57)
[2020-10-07] MEDS ORDERED: FONDAPARINUX SODIUM 2.5 MG/0.5 ML SYRINGE SQ SCH (09:00)
[2020-10-07] MEDS ORDERED: THIAMINE 100 MG in 0.9 % SODIUM CHLORIDE 50 ML IV SCH (09:00)
--- NOTE | 2020-10-07 09:16 | XRay Report ---
HISTORY: Weakness, evaluate interval change FINDINGS: There are multiple superimposed artifacts. The lungs appear clear and normally expanded. The heart size, pulmonary vasculature, mediastinum, katy and pleura are normal. There has been no significant change since 09/13/20. IMPRESSION: Normal exam Interpreted and Authenticated by: Sai San 10/07/20
--- NOTE | 2020-10-07 09:27 | Internal Med Progress Note ---
SUBJECTIVE Subjective Patient information: Note initiated : 10/07/20 at 9:24 am Service Date, if different from initiated Date: [] Patient: Fanny Ledesma a 34 y/o F admitted on 10/05/20 for leg weakness. Chief Complaint: [] Interval history: Ms. Ledesma is a 34 year old F history of alcoholism/reactive airway diseas Who presents to the ER with increasing weakness. Patient has been drinking regularly in excess of 8 to 10 ounces of vodka. She endorses to starting drinking at age 14. She has 3 kids and lives with her . She denies suicidal ideation but has been trying to quit alcohol. She is on multiple recent hospitalization for alcohol intoxication. She denies bloody emesis, bloody stool, abdominal pain distention or yellow discoloration of skin, she does endorse to loss of appetite. Initial work-up in the ER was consistent with acute alcoholic hepatitis with elevated LFTs AST/ALT ratio reduced to 1, platelet 43, elevated lipase, early alcohol withdrawal symptoms with tachycardia tachypnea and psychomotor agitation. Patient was started on benzodiazepine/crystalloids. Notably patient has history of withdrawal symptoms mimicking seizures in the past. Hospitalist service was consulted At the time of evaluation patient is anxious. She is able to answer most of the questions. She is slightly anxious and fidgety but denies diaphoresis/diarrhea/fever, chills. Later in the day patient clinically deteriorating. Case discussed with patient's nursing staff. Remains tachycardic at 120s with CIWA score around 20. Tremulous and diaphoretic. Transition to PCU for continued EtOH withdrawal care/monitoring for DTs and seizure prophylaxis. 10/06-patient doing well on aggressive alcohol withdrawal protocol. LFTs d owntrending. Transitioning to oral diet. Improved psychomotor agitation/tachycardia/diaphoresis. Electrolyte abnormalities currently being replaced with IV and oral magnesium/potassium/phosphorus. Aggressive counseling for alcohol cessation performed. Patient volunteering to undergo outpatient rehab however affirms that is difficult at home with her also being an alcoholic. Case management consulted to provide resources available in the community. No overnight events except for persistent psychomotor agitation requiring aggressive alcohol withdrawal monitoring and treatment 10/07-patient clinically improving. No overnight seizures. Withdrawal symptoms well controlled on gabapentin/clonidine, improved potassium to 3.3, phosphorus 2.2 magnesium 1.5, downtrending bilirubin and LFTs, tolerating diet. Advancing to low-fat. Continue therapies as tolerated. Anticipate discharge in 24 to 40 hours pending clinical improvement. Lower clonidine/gabapentin dose today Constitutional Vitals: Vital Signs Temp Pulse Resp BP Pulse Ox 97.6 F 90 16 118/94 100 10/07/20 07:35 10/07/20 09:01 10/07/20 09:01 10/07/20 07:35 10/07/20 09:01 Period Temp Pulse Resp BP Sys/Rod Pulse Ox Last 24 Hr 97.3 F-98.7 F 71-115 16-20 109-121/73-94 92-100 Intake and Output 10/06/20 10/07/20 10/07/20 21:59 05:59 13:59 Intake Total 1978 168 1325 Output Total 525 1974 700 Balance 1454 -295 625 Weight 62.596 kg Anxious but minimally extremitas Nonlabored breathing Nontender nondistended abdomen Intake & Output: Intake & Output 10/06/20 10/07/20 10/07/20 21:59 05:59 13:59 Intake Total 1978 1679 1325 Output Total 525 1974 700 Balance 1454 -295 625 Weight 62.596 kg Intake: IV 1978 1000 975 Sodium Chloride 0.9% 1,000 ml @ 1978 1000 975 250 mls/hr IV .Q4H [facility] Rx#: [id number] Oral 680 350 Output: Void Amount 525 1975 700 Other: Meal Dinner Breakfast Percent of Meal Consumed 75% 75% Feeding Ability Independent Independent Urine Appearance Clear Clear Clear Urine Color [place] Bright Yellow Light [place] Urine Odor Normal Normal Strong OBJ DATA Labs CBC & Chem 7: 10/07/20 05:52 10/07/20 05:52 Labs: Abnormal Lab Results 10/07/20 10/07/20 10/06/20 05:52 05:52 05:53 RBC 3.01 L Hgb 10.5 L Hct 31.5 L MCV 104.7 H MCH 34.9 H Plt Count 70 L MPV 13.1 H Lymph # (Auto) 0.94 L POC PT POC Potassium Potassium 3.0 L Chloride 112 H POC Total CO2 Anion Gap 7.0 L 7.0 L BUN 3 L 4 L Creatinine 0.3 L 0.3 L POC Creatinine POC Glucose Calcium 7.3 L 7.1 L POC WB Ioniz Calcium Phosphorus 2.2 L 1.9 L Magnesium 1.5 L 0.9 L* Total Bilirubin 2.3 H 2.7 H Direct Bilirubin 1.7 H 2.0 H GGT 995 H 945 H AST 198 H 250 H ALT 146 H 148 H Alkaline Phosphatase Lactate Dehydrogenase 305 H 293 H Total Protein 4.8 L 4.0 L Albumin 2.9 L 2.6 L Globulin 1.9 L 1.4 L Lipase 10/06/20 10/05/20 10/05/20 05:53 23:47 23:47 RBC 2.74 L Hgb 9.5 L Hct 28.3 L MCV 103.3 H MCH 34.7 H 34.7 H Plt Count 46 L* 43 L* MPV 13.8 H Lymph # (Auto) 1.05 L 1.08 L POC PT POC Potassium Potassium Chloride POC Total CO2 Anion Gap BUN Creatinine POC Creatinine POC Glucose Calcium POC WB Ioniz Calcium Phosphorus Magnesium Total Bilirubin Direct Bilirubin GGT AST ALT Alkaline Phosphatase Lactate Dehydrogenase Total Protein Albumin Globulin Lipase 828 H 10/05/20 10/05/20 10/04/20 23:47 01:19 23:40 RBC Hgb Hct MCV MCH Plt Count MPV Lymph # (Auto) POC PT 11.7 L POC Potassium 2.9 L* Potassium Chloride POC Total CO2 19 L Anion Gap BUN Creatinine POC Creatinine 0.5 L POC Glucose 158 H Calcium POC WB Ioniz Calcium 1.03 L Phosphorus Magnesium Total Bilirubin 3.9 H Direct Bilirubin 2.1 H GGT AST 560 H ALT 264 H Alkaline Phosphatase 136 H Lactate Dehydrogenase Total Protein Albumin Globulin Lipase Meds: Medications Albuterol Sulfate (Albuterol Sulfate 200 Puff Inhaler) 2 puff INH QIDP PRN PRN Reason: shortness of breath or wheezin Bisacodyl (Bisacodyl 10 Mg Supp.Rect) 10 mg MD Q2-3DAYS PRN PRN Reason: Constipation Budesonide (Budesonide 0.5 Mg/2 Ml Ampul.Neb) 0.5 mg NEB Q12 [facility] Last Admin: 10/07/20 08:57 Dose: 0.5 mg Documented by: Clonidine HCl (Clonidine Hcl 0.1 Mg Tablet) 0.1 mg PO DAILY [facility] Cyanocobalamin (Cyanocobalamin (Vitamin B-12) 500 Mcg Tablet) 1,000 mcg PO BID [facility] Stop: 10/09/20 21:01 Last Admin: 10/06/20 20:35 Dose: 1,000 mcg Documented by: Docusate Sodium (Docusate Sodium 100 Mg Capsule) 100 mg PO BID [facility] Last Admin: 10/06/20 20:35 Dose: 100 mg Documented by: Folic Acid (Folic Acid 1 Mg Tablet) 1 mg PO DAILY [facility] Fondaparinux (Fondaparinux Sodium 2.5 Mg/0.5 Ml Syringe) 2.5 mg SQ DAILY [facility] Gabapentin (Gabapentin 300 Mg Capsule) 300 mg PO Q8 [facility] Sodium Chloride (Sodium Chloride 0.9%) 1,000 mls @ 250 mls/hr IV .Q4H [facility] Last Admin: 10/07/20 06:07 Dose: 250 mls/hr Documented by: Magnesium Sulfate (Magnesium Sulfate) 2 gm in 50 mls @ 50 mls/hr IV UD PRN PRN Reason: MG = or < 1.7 Thiamine HCl 100 mg/ Sodium (Chloride) 51 mls @ 50 mls/hr IV DAILY [facility] Stop: 10/07/20 10:02 Potassium Chloride 40 meq/ (Dextrose) 520 mls @ 130 mls/hr IV UD PRN PRN Reason: K+ = or < 3.5 Iron Carb/Multivit/[place]/Folic Acid (Multivit,Ther Iron,Ca,Fa & Min 1 Tablet) 1 tab PO DAILY [facility] Lorazepam (Lorazepam 2 Mg/Ml Vial) 1 - 2 mg IV Q2HP PRN PRN Reason: ANXIETY/SEDATION Last Admin: 10/07/20 05:50 Dose: 2 mg Documented by: Melatonin (Melatonin 3 Mg Tablet) 3 mg PO HSP PRN PRN Reason: Insomnia Ondansetron HCl (Ondansetron 4 Mg Odt Tablet) 4 mg SL Q4-6HP PRN; Protocol PRN Reason: Nausea And Vomiting Ondansetron HCl (Ondansetron 4 Mg/2 Ml Vial) 4 mg IV Q4-6HP PRN; Protocol PRN Reason: Nausea And Vomiting Last Admin: 10/07/20 04:10 Dose: 4 mg Documented by: Pantoprazole Sodium (Pantoprazole 40 Mg Tablet) 40 mg PO QAMAC [facility] Last Admin: 10/07/20 08:04 Dose: 40 mg Documented by: Polyethylene Glycol (Polyethylene Glycol 3350 17 Gm Packet) 17 gm PO DAILYP PRN PRN Reason: Constipation Potassium Chloride (Potassium Chloride 20 Meq Packet) 40 meq PO DAILYP PRN PRN Reason: K+ < 3.5 Potassium/Phosphorus/Sodium (Neutra Phos 1 Packet) 2 packet PO DAILYP PRN PRN Reason: PHOS <2.5 Senna/Docusate Sodium (Sennosides/Docusate Sodium 1 Tab Tablet) 1 tab PO HS [facility] Last Admin: 10/06/20 20:35 Dose: 1 tab Documented by: Sodium Chloride (0.9 % Sodium Chloride 10 Ml Syringe) 10 ml IV Q8 [facility] Last Admin: 10/07/20 05:34 Dose: Not Given Documented by: A/P Narrative A/P Narrative: * Acute alcohol hepatitis. Clinically improving with downtrending LFTs/improving synthetic function. DC steroid. Aggressive alcohol cessation counseling * Acute alcoholic pancreatitis-gradual clinical improvement noted. Transition to low-fat diet. Doing well * Severe alcohol use disorder with DTs -no overnight seizures. Gradually lower clonidine/gabapentin dose. Continue multivitamin/nutrition support/ crystalloids and electrolyte monitoring * Thrombocytopenia secondary to alcoholic liver disease. Stable with no evidence of bleeding * Multiple electrolyte abnormality including low phosphorus/hypokalemia/low magnesium continue aggressive IV and oral replacement * Reactive airway disease continue bronchodilators * Full code prophylaxis Heparin Plan * Continue close hemodynamic/DT monitoring * Lower clonidine/gabapentin dose * Advanced to the low-fat diet * Fondaparinux * Possible discharge in 24 to 40 hours pending clinical improvement Time Spent With Patient Time: Total time spent is greater than 50% in coordination of care (as documented) at patient's floor/unit and/or counseling patient: QUALITY Stroke Symptom Onset Unknown: No VTE Deep Vein Thrombosis/Pulmonary Embolism Present on Admission: No
[2020-10-07] MEDS: DOCUSATE SODIUM 100 MG CAPSULE PO SCH ×2 (09:48→20:02)
[2020-10-07] MEDS: FOLIC ACID 1 MG TABLET PO SCH (10:02)
[2020-10-07] MEDS: MULTIVIT,THER IRON,CA,FA & MIN 1 TABLET PO SCH (10:02)
[2020-10-07] MEDS: CYANOCOBALAMIN (VITAMIN B-12) 500 MCG TABLET PO SCH ×2 (10:02→21:34)
[2020-10-07] MEDS: FONDAPARINUX SODIUM 2.5 MG/0.5 ML SYRINGE SQ SCH (10:04)
[2020-10-07] MEDS: POTASSIUM CHLORIDE 20 MEQ PACKET PO PRN (14:34)
[2020-10-07] MEDS: NEUTRA PHOS 1 PACKET PO PRN (14:34)
[2020-10-07] MEDS: MAGNESIUM SULFATE 2 GM/50 ML BAG IV PRN (14:37)
[2020-10-07] MEDS: SENNOSIDES/DOCUSATE SODIUM 1 TAB TABLET PO SCH (20:02)
[2020-10-08] MEDS: 0.9 % SODIUM CHLORIDE 1,000 ML IV SCH ×2 (01:01→05:18)
[2020-10-08] MEDS: 0.9 % SODIUM CHLORIDE 10 ML SYRINGE IV SCH ×3 (05:43→22:18)
[2020-10-08] MEDS: LORazepam 2 MG/ML VIAL IV PRN ×5 (06:01→22:18)
[2020-10-08] MEDS: GABAPENTIN 300 MG CAPSULE PO SCH ×3 (06:02→22:16)
[2020-10-08] MEDS: PANTOPRAZOLE 40 MG TABLET PO SCH (07:10)
[2020-10-08 09:30] LABS: Basophils # (Auto) 0.03 K/mcL (0.00-0.20); Basophils % (Auto) 0.6 % (0.0-2.0); Eosinophils # (Auto) 0.18 K/mcL (0.00-0.70); Eosinophils % (Auto) 3.4 % (0.0-7.0); Hematocrit 32.9 % (36.0-48.0); Hemoglobin 10.6 g/dL (12.0-15.0); Lymphocytes # (Auto) 0.65 K/mcL (1.50-4.80); Lymphocytes % (Auto) 12.1 % (15.0-49.0); Mean Cell Volume 105.4 fL (80.0-100.0); Mean Corpuscular HGB Conc 32.2 g/dL (31.0-36.0); Mean Platelet Volume 12.6 fL (7.4-10.4); Monocytes # (Auto) 0.61 K/mcL (0.10-0.90); Monocytes % (Auto) 11.4 % (1.0-12.0); Neutrophils % (Auto) 72.5 % (38.0-78.0); Platelet Count 91 K/mcL (140-440); RBC 3.12 M/mcL (4.00-5.20); WBC 5.4 K/mcL (4.5-11.0)
[2020-10-08 09:45] LABS: ALT/SGPT 148 U/L (<40); AST/SGOT 176 U/L (<32); Albumin 3.1 gm/dL (3.2-5.2); Albumin/Globulin Ratio 1.5 (1.0-2.3); Alkaline Phosphatase 117 U/L (39-117); Bilirubin,Direct 1.3 mg/dL (<0.3); Bilirubin,Total 1.9 mg/dL (0.1-1.0); Blood Urea Nitrogen 3 mg/dL (6-20); Calcium 7.6 mg/dL (8.6-10.4); Carbon Dioxide 22 mmol/L (22-30); Chloride 111 mmol/L (96-108); Glomerular Filtration Rate 147; Glucose 71 mg/dL (70-105); Lactate Dehydrogenase 328 U/L (135-225); Phosphorous 1.9 mg/dL (2.5-4.5); Triglycerides 102 mg/dL (<150); Uric Acid 4.2 mg/dL (2.5-8.0)
[2020-10-08] MEDS: FONDAPARINUX SODIUM 2.5 MG/0.5 ML SYRINGE SQ SCH (11:01)
[2020-10-08] MEDS: cloNIDine HCL 0.1 MG TABLET PO SCH (11:02)
[2020-10-08] MEDS: DOCUSATE SODIUM 100 MG CAPSULE PO SCH ×2 (11:02→20:34)
[2020-10-08] MEDS: CYANOCOBALAMIN (VITAMIN B-12) 500 MCG TABLET PO SCH ×2 (11:03→22:16)
[2020-10-08] MEDS: MULTIVIT,THER IRON,CA,FA & MIN 1 TABLET PO SCH (11:03)
[2020-10-08] MEDS: FOLIC ACID 1 MG TABLET PO SCH (11:03)
[2020-10-08] MEDS: NEUTRA PHOS 1 PACKET PO PRN (12:50)
[2020-10-08] MEDS: POTASSIUM CHLORIDE 20 MEQ PACKET PO PRN (12:53)
[2020-10-08] MEDS: MAGNESIUM SULFATE 2 GM/50 ML BAG IV PRN (14:58)
--- NOTE | 2020-10-08 17:08 | Internal Med Progress Note ---
SUBJECTIVE Subjective Patient information: Note initiated : 10/08/20 at 5:01 pm Service Date, if different from initiated Date: [] Patient: Fanny Ledesma 34 y/o F admitted on 10/05/20 for leg weakness. Chief Complaint: [Delirium tremens, abdominal pain due to alcoholic acute pancreatitis ] Overnight: Able to tolerate low fat diet. CIWA score 14 this morning. Otherwise there was no other major overnight events. Subjective: 2/10 severity, constant, sharp/burning/pressure-like pain localized in epigastrium without radiation. Denies any nausea vomiting diarrhea or constipation. c/o chills, denies fever or sweating. c/o anxiety and agitation. c/o increased hand tremors. c/o insomnia. c/o auditory hallucination. Constitutional Vitals: Vital Signs Temp Pulse Resp BP Pulse Ox 36.9 C 97 H 16 122/86 96 10/08/20 12:00 10/08/20 12:00 10/08/20 12:00 10/08/20 12:00 10/08/20 12:00 Period Temp Pulse Resp BP Sys/Rod Pulse Ox Last 24 Hr 36.8 C-37.1 C 77-97 16-20 112-127/78-87 96-98 Intake and Output 10/08/20 10/08/20 10/08/20 05:59 13:59 21:59 Intake Total 3160 1440 50 Output Total 1853 1500 Balance 1307 -60 50 Intake & Output: Intake & Output 10/08/20 10/08/20 10/08/20 05:59 13:59 21:59 Intake Total 3160 1440 50 Output Total 1853 1500 Balance 1307 -60 50 Intake: IV 2000 1000 50 Sodium Chloride 0.9% 1,000 ml @ 2000 1000 250 mls/hr IV .Q4H [facility] Rx#: [id number] Oral 1160 440 Output: Void Amount 1850 1500 # of times incontinent of urine 3 Other: Urine Appearance Clear Urine Color Bright Yellow Urine Odor Normal General appearance: cooperative and no acute distress Head Head exam: Present atraumatic and normocephalic Eye Eye exam: Present EOMI and PERRL ENT ENT exam: Present mucous membranes moist, normal exam and normal external ear exam Neck Neck exam: Present normal inspection; Absent lymphadenopathy, tenderness and thyromegaly Respiratory Respiratory exam: Absent accessory muscle use, respiratory distress and wheezes Cardiovascular Cardiovascular exam: Present normal rate and rhythm; Absent JVD GI/Abdominal GI/Abdominal exam: Present normal bowel sounds, soft and tenderness; Absent organomegaly Additional comments: Epigastric tenderness to palpation, no guarding or rebound tenderness. Extremities Exam Extremities exam: Present full ROM, normal capillary refill and normal insp ection; Absent tenderness Neurological Exam Neurological exam: Present alert, CN II-XII intact and oriented X3; Absent motor sensory deficit Additional comments: Increased bilateral hands tremors Psychiatric Psychiatric exam: Present normal affect and normal mood; Absent anxious and depressed Skin Skin exam: Present dry and intact OBJ DATA Labs CBC & Chem 7: 10/08/20 06:12 10/08/20 06:12 Labs: Abnormal Lab Results 10/08/20 10/08/20 10/07/20 06:12 06:12 05:52 RBC 3.12 L Hgb 10.6 L Hct 32.9 L MCV 105.4 H MCH Plt Count 91 L MPV 12.6 H Lymph % (Auto) 12.1 L Lymph # (Auto) 0.65 L Potassium Chloride 111 H 112 H Anion Gap 7.0 L 7.0 L BUN 3 L 3 L Creatinine 0.3 L 0.3 L Calcium 7.6 L 7.3 L Phosphorus 1.9 L 2.2 L Magnesium 1.5 L Total Bilirubin 1.9 H 2.3 H Direct Bilirubin 1.3 H 1.7 H GGT 965 H 995 H AST 176 H 198 H ALT 148 H 146 H Lactate Dehydrogenase 328 H 305 H Total Protein 5.1 L 4.8 L Albumin 3.1 L 2.9 L Globulin 2.0 L 1.9 L 10/07/20 10/06/20 10/06/20 05:52 05:53 05:53 RBC 3.01 L 2.74 L Hgb 10.5 L 9.5 L Hct 31.5 L 28.3 L MCV 104.7 H 103.3 H MCH 34.9 H 34.7 H Plt Count 70 L 46 L* MPV 13.1 H 13.8 H Lymph % (Auto) Lymph # (Auto) 0.94 L 1.05 L Potassium 3.0 L Chloride Anion Gap 7.0 L BUN 4 L Creatinine 0.3 L Calcium 7.1 L Phosphorus 1.9 L Magnesium 0.9 L* Total Bilirubin 2.7 H Direct Bilirubin 2.0 H GGT 945 H AST 250 H ALT 148 H Lactate Dehydrogenase 293 H Total Protein 4.0 L Albumin 2.6 L Globulin 1.4 L Meds: Medications Albuterol Sulfate (Albuterol Sulfate 200 Puff Inhaler) 2 puff INH QIDP PRN PRN Reason: shortness of breath or wheezin Bisacodyl (Bisacodyl 10 Mg Supp.Rect) 10 mg DE Q2-3DAYS PRN PRN Reason: Constipation Clonidine HCl (Clonidine Hcl 0.1 Mg Tablet) 0.1 mg PO DAILY [facility] Last Admin: 10/08/20 11:02 Dose: 0.1 mg Documented by: Cyanocobalamin (Cyanocobalamin (Vitamin B-12) 500 Mcg Tablet) 1,000 mcg PO BID [facility] Stop: 10/09/20 21:01 Last Admin: 10/08/20 11:03 Dose: 1,000 mcg Documented by: Docusate Sodium (Docusate Sodium 100 Mg Capsule) 100 mg PO BID [facility] Last Admin: 10/08/20 11:02 Dose: 100 mg Documented by: Folic Acid (Folic Acid 1 Mg Tablet) 1 mg PO DAILY [facility] Last Admin: 10/08/20 11:03 Dose: 1 mg Documented by: Fondaparinux (Fondaparinux Sodium 2.5 Mg/0.5 Ml Syringe) 2.5 mg SQ DAILY [facility] Last Admin: 10/08/20 11:01 Dose: 2.5 mg Documented by: Gabapentin (Gabapentin 300 Mg Capsule) 300 mg PO Q8 [facility] Last Admin: 10/08/20 12:54 Dose: 300 mg Documented by: Magnesium Sulfate (Magnesium Sulfate) 2 gm in 50 mls @ 50 mls/hr IV UD PRN PRN Reason: MG = or < 1.7 Last Infusion: 10/08/20 16:06 Dose: Infused Documented by: Potassium Chloride 40 meq/ (Dextrose) 520 mls @ 130 mls/hr IV UD PRN PRN Reason: K+ = or < 3.5 Iron Carb/Multivit/Phlebotomy Technician/Folic Acid (Multivit,Ther Iron,Ca,Fa & Min 1 Tablet) 1 tab PO DAILY [facility] Last Admin: 10/08/20 11:03 Dose: 1 tab Documented by: Lorazepam (Lorazepam 2 Mg/Ml Vial) 1 - 2 mg IV Q2HP PRN PRN Reason: ANXIETY/SEDATION Last Admin: 10/08/20 16:00 Dose: 2 mg Documented by: Melatonin (Melatonin 3 Mg Tablet) 3 mg PO HSP PRN PRN Reason: Insomnia Ondansetron HCl (Ondansetron 4 Mg Odt Tablet) 4 mg SL Q4-6HP PRN; Protocol PRN Reason: Nausea And Vomiting Ondansetron HCl (Ondansetron 4 Mg/2 Ml Vial) 4 mg IV Q4-6HP PRN; Protocol PRN Reason: Nausea And Vomiting Last Admin: 10/07/20 18:31 Dose: 4 mg Documented by: Pantoprazole Sodium (Pantoprazole 40 Mg Tablet) 40 mg PO QAMAC [facility] Last Admin: 10/08/20 07:10 Dose: 40 mg Documented by: Polyethylene Glycol (Polyethylene Glycol 3350 17 Gm Packet) 17 gm PO DAILYP PRN PRN Reason: Constipation Potassium Chloride (Potassium Chloride 20 Meq Packet) 40 meq PO DAILYP PRN PRN Reason: K+ < 3.5 Last Admin: 10/08/20 12:53 Dose: 40 meq Documented by: Potassium/Phosphorus/Sodium (Neutra Phos 1 Packet) 2 packet PO DAILYP PRN PRN Reason: PHOS <2.5 Last Admin: 10/08/20 12:50 Dose: 2 packet Documented by: Senna/Docusate Sodium (Sennosides/Docusate Sodium 1 Tab Tablet) 1 tab PO HS [facility] Last Admin: 10/07/20 20:02 Dose: Not Given Documented by: Sodium Chloride (0.9 % Sodium Chloride 10 Ml Syringe) 10 ml IV Q8 [facility] Last Admin: 10/08/20 12:54 Dose: 10 ml Documented by: A/P Assessment and plan (1) Acute alcoholic hepatitis: Status: Acute (2) Alcoholic pancreatitis: Status: Acute (3) Delirium tremens: Status: Acute Narrative A/P Narrative: 1. Delirium Tremens: CIWA protocols, measures including Ativan to be provided for symptoms relief 2. Acute alcoholic pancreatitis with hepatitis: Low fat, cutted diet Saline lock Daily CMP to trend LFTs Pain meds would also be provded for symptoms relief Zofran PRN nausea vomiting Time Spent With Patient Time: Total time spent is greater than 50% in coordination of care (as documented) at patient's floor/unit and/or counseling patient: Total time spent with greater than 50% in coordination of care (as documented) at patient's floor/unit and/or counseling patient:: 25 - 35 minutes QUALITY Stroke Symptom Onset Unknown: No VTE Deep Vein Thrombosis/Pulmonary Embolism Present on Admission: No
[2020-10-08] MEDS: SENNOSIDES/DOCUSATE SODIUM 1 TAB TABLET PO SCH (20:34)
[2020-10-09] MEDS: GABAPENTIN 300 MG CAPSULE PO SCH ×2 (05:53→14:06)
[2020-10-09] MEDS: 0.9 % SODIUM CHLORIDE 10 ML SYRINGE IV SCH ×2 (05:53→14:07)
[2020-10-09] MEDS: LORazepam 2 MG/ML VIAL IV PRN ×3 (06:45→14:06)
[2020-10-09] MEDS: PANTOPRAZOLE 40 MG TABLET PO SCH (06:45)
[2020-10-09 08:24] LABS: Basophils # (Auto) 0.04 K/mcL (0.00-0.20); Basophils % (Auto) 0.9 % (0.0-2.0); Eosinophils # (Auto) 0.16 K/mcL (0.00-0.70); Eosinophils % (Auto) 3.4 % (0.0-7.0); Hematocrit 33.6 % (36.0-48.0); Lymphocytes # (Auto) 0.77 K/mcL (1.50-4.80); Lymphocytes % (Auto) 16.5 % (15.0-49.0); Mean Cell Volume 105.3 fL (80.0-100.0); Mean Corpuscular HGB Conc 32.7 g/dL (31.0-36.0); Mean Platelet Volume 12.5 fL (7.4-10.4); Monocytes # (Auto) 0.69 K/mcL (0.10-0.90); Monocytes % (Auto) 14.7 % (1.0-12.0); Neutrophils % (Auto) 64.5 % (38.0-78.0); Platelet Count 124 K/mcL (140-440); RBC 3.19 M/mcL (4.00-5.20); Red Cell Distribution Width 14.6 % (11.5-14.5); WBC 4.7 K/mcL (4.5-11.0)
[2020-10-09 08:38] LABS: ALT/SGPT 134 U/L (<40); AST/SGOT 132 U/L (<32); Albumin/Globulin Ratio 1.4 (1.0-2.3); Alkaline Phosphatase 128 U/L (39-117); Bilirubin,Total 1.6 mg/dL (0.1-1.0); Blood Urea Nitrogen 3 mg/dL (6-20); Calcium 8.2 mg/dL (8.6-10.4); Carbon Dioxide 27 mmol/L (22-30); Chloride 103 mmol/L (96-108); Globulin 2.2 gm/dL (2.2-3.7); Glomerular Filtration Rate 134; Glucose 81 mg/dL (70-105); Lactate Dehydrogenase 305 U/L (135-225); Phosphorous 2.2 mg/dL (2.5-4.5); Triglycerides 98 mg/dL (<150); Uric Acid 4.6 mg/dL (2.5-8.0)
[2020-10-09] MEDS: MULTIVIT,THER IRON,CA,FA & MIN 1 TABLET PO SCH (09:37)
[2020-10-09] MEDS: cloNIDine HCL 0.1 MG TABLET PO SCH (09:37)
[2020-10-09] MEDS: CYANOCOBALAMIN (VITAMIN B-12) 500 MCG TABLET PO SCH (09:37)
[2020-10-09] MEDS: DOCUSATE SODIUM 100 MG CAPSULE PO SCH (09:38)
[2020-10-09] MEDS: FONDAPARINUX SODIUM 2.5 MG/0.5 ML SYRINGE SQ SCH (09:38)
[2020-10-09] MEDS: FOLIC ACID 1 MG TABLET PO SCH (09:38)
--- NOTE | 2020-10-09 12:08 | Discharge Summary ---
Discharge Provider Provider Patient information: Note initiated : 10/09/20 at 12:04 pm Service Date, if different from initiated Date: [] Patient: Fanny Ledesma 35 y/o F admitted on 10/05/20 for leg weakness. Chief Complaint: [] Date of admission: 10/05/20 03:35 Discharge date: 10/09/20 Primary care physician: Unknown Unknown Consults: 10/05/20 03:37 Consult to Physician [CONS] Routine Comment: Consulting Provider: Reyes Burrell Reason For Exam: Physician to Consult Discharge Meds Discharge Medications Home Medications lorazepam [Ativan] 1 mg PO TID PRN #14 tab 06/07/20 [Rx Confirmed 10/05/20 Last Taken 10/04/20 10:00] albuterol sulfate 2 puff INHALATION QID PRN #8.5 g 09/13/20 [Rx Confirmed 10/05/20 Last Taken 10/04/20 21:00] lorazepam [Ativan] 1 mg PO TID PRN #20 tab 10/09/20 [Rx Last Taken Unknown] COURSE Hospital Course Hospital course: Patient was admitted on 10/02/20 for acute alcohol hepatitis, acute alcohol pancreatitis, and delirium tremens. CIWA protocol was initiated and measures were provided for alcohol withdrawal symptoms relief. IV fluid infusion as well as gradual diet advancement were also implemented for acute alcohol pancreatitis. By 10/09/20, patient's symptoms of alcohol withdrawal and pancreatitis were largely resolved, and she was able to tolerated low fat bland diet. As such, the decision was made to discharge her home with Rx Ativan as well as DME walker given. 3 week PCP follow up appointment made for her. All questions were answered prior to patient being physically discharged. Discharge diagnosis: acute alcohol hepatitis, acute alcohol pancreatitis, and delirium tremens. Time spent discussing smoking cessation with patient: more than 10 minutes Time Spent with Patient Time attestation: Total time spent providing and/or coordinating discharge se rvices: Time spent: Less than 30 minutes EXAM Constitutional Vitals: Temp Pulse Resp BP Pulse Ox 37.1 C 65 20 130/85 97 10/09/20 07:37 10/09/20 07:37 10/09/20 07:37 10/09/20 07:37 10/09/20 07:37 Discharge Data Data Completed and Pending Labs on day of discharge: Labs from last 24 hours 10/09/20 10/09/20 05:59 05:59 WBC 4.7 RBC 3.19 L Hgb 11.0 L Hct 33.6 L MCV 105.3 H MCH 34.5 H MCHC 32.7 RDW 14.6 H Plt Count 124 L MPV 12.5 H Neut % (Auto) 64.5 Lymph % (Auto) 16.5 [place] % (Auto) 14.7 H Eos % (Auto) 3.4 Baso % (Auto) 0.9 Lymph # (Auto) 0.77 L [place] # (Auto) 0.69 Eos # (Auto) 0.16 Baso # (Auto) 0.04 Absolute Neutrophils 3.02 Sodium 136 Potassium 3.6 Chloride 103 Carbon Dioxide 27 Anion Gap 6.0 L BUN 3 L Creatinine 0.4 L GFR Calculation 134 Glucose 81 Uric Acid 4.6 Calcium 8.2 L Phosphorus 2.2 L Magnesium 1.7 Total Bilirubin 1.6 H Direct Bilirubin 1.0 H GGT 841 H AST 132 H ALT 134 H Alkaline Phosphatase 128 H Lactate Dehydrogenase 305 H Total Protein 5.2 L Albumin 3.0 L Globulin 2.2 Albumin/Globulin Ratio 1.4 Triglycerides 98 Discharge Plan Patient/Caregiver Discharge Instructions Activity: resume usual activities as tolerated Diet: Low Fat Activity Restrictions/Additional Instructions: Refrain from alcohol use Follow up with PCP in 3 week Low fat bland diet Prescriptions: New lorazepam [Ativan] 1 mg tablet 1 mg PO TID PRN (Reason: anxiety) Qty: 20 RF: 0 Continued lorazepam [Ativan] 1 mg tablet 1 mg PO TID PRN (Reason: seizure activity) Qty: 14 RF: 0 albuterol sulfate 90 mcg/actuation HFA aerosol inhaler 2 puff inhalation QID PRN (Reason: shortness of breath or wheezing) Qty: 8.5 RF: 0 Discontinued sulfamethoxazole-trimethoprim [Bactrim DS] 800-160 mg tablet 1 tab PO Q12H Qty: 14 RF: 0 Follow Up Plan Follow up with: Unknown,Unknown [Primary Care Provider] - (follow up with PCP in 3 week ) Patient Disposition: Home, Self-Care Discharge Orders: Discharge Order (Routine); Ordered 10/09/20 Ordered By: Chemo SWARTZ VTE Deep Vein Thrombosis/Pulmonary Embolism Present on Admission: No
[2020-10-09] MEDS: NEUTRA PHOS 1 PACKET PO PRN (12:15)
== END 2020-10-09 15:30 | disposition home or self-care (01) | DRG 432 ==
LOC: ED 23:10 → MEDSUR 10-05 03:30
PROVIDERS: ADMIT Internal Medicine; ATTEND Internal Medicine